=== PATIENT | female | born 1960 | race Caucasian/White ===

== ENCOUNTER 2023-04-09 06:11 | Observation (INO) | payer SELFPAY ==
[2023-04-09] MEDS ORDERED: ASPIRIN 81 MG CHEWABLE TABLET ONE (07:00)
[2023-04-09 07:18] LABS: Absolute Lymphocytes (CBC) 1.6 K/uL (0.7-4.9); Hematocrit 34.9 % (36.0-45.0); Lymphocytes % 18.7 % (15.3-44.8); MCV 97.9 fL (80-100); MPV 7.3 fL (7.6-11.3); Platelets 280 thou/uL (152-406); RBC Red Blood Cell Count 3.56 M/uL (3.86-4.86)
[2023-04-09 07:32] LABS: Protime INR 0.98
[2023-04-09 07:37] LABS: Albumin 3.3 g/dL (3.4-5.0); Bilirubin Direct 0.1 mg/dL (0-0.2); Bilirubin Indirect, Calculated 0.2 mg/dL (0.2-0.8); Bilirubin Total 0.3 mg/dL (0.2-1.0); Magnesium 2.1 mg/dL (1.6-2.4); Potassium 2.9 mEq/L (3.5-5.1); Protein, Total 7.6 g/dL (6.4-8.2); Troponin High Sensitivity 9.6 pg/mL (<58.9)
--- NOTE | 2023-04-09 08:00 | RAD REPORT ---
EXAM DESCRIPTION: CT - Chest For Pe Angio - 04/09/2023 7:48 am CLINICAL HISTORY: CHEST PAIN COMPARISON: No comparisons TECHNIQUE: Dynamically enhanced axial 3 mm thick images of the chest were obtained during administra tion of <100> mL Isovue 370 IV contrast. Coronal and oblique reconstruction images were generated and reviewed. Exam utilizes a protocol for optimal evaluation of pulmonary arterial tree. Maximum intensity projections 3D imaging was utilized All CT scans are performed using dose optimization technique as appropriate and may include automated exposure control or mA/KV adjustment according to patient size. FINDINGS: Chest Wall: No suspicious thyroid nodules or pathologic lymphadenopathy. Lungs: Mild bronchial wall thickening with some secretions in the lower lung airways. Pleura: No significant effusions or pneumothorax. Mediastinum/zehra: No pathologic lymphadenopathy. Circumferentially thickened distal esophagus which c ould reflect esophagitis. A small hiatal hernia is also noted. Pulmonary arteries/Aorta: No filling defect identified. No aortic aneurysm. Heart: No significant pericardial effusion. Normal heart size. Upper abdomen: No acute abnormality. Bones: No acute abnormality. IMPRESSION: Negative for pulmonary embolism. Mild bronchial wall thickening with some scattered airw ay secretions that could be due to bronchitis. Thickened distal esophagus with small hiatal hernia th at could reflect esophagitis. Endoscopy could better evaluate.
--- NOTE | 2023-04-09 08:19 | ER ---
Nurse's Notes [facility] Name: Devi Kwok Age: 62 yrs Sex: Female : 1960 Arrival Date: 04/09/2023 Time: 06:11 Bed 2 Private MD: Diagnosis: Chest pain, unspecified Presentation: 04/09 06:15 Chief complaint: Patient states: constant left side chest pain of 7,onset 1 week that pf1 sometimes radiates to center of chest. 06:15 Coronavirus screen: Vaccine status: Patient reports receiving the 1st dose of the Covid pf1 vaccine. [employer] Client denies travel out of the [place] in the last 14 days. At this time, the client does not indicate any symptoms associated with coronavirus-19. Ebola Screen: Patient negative for fever greater than or equal to 101.5 degrees Fahrenheit, and additional compatible Ebola Virus Disease symptoms. Initial Sepsis Screen: Does the patient meet any 2 criteria? No. Patient's initial sepsis screen is negative. Does the patient have a suspected source of infection? No. Patient's initial sepsis screen is negative. Risk Assessment: Do you want to hurt yourself or someone else? Patient reports no desire to harm self or others. 06:15 Method Of Arrival: Ambulatory pf1 06:15 Acuity: LEILANI 2 pf1 08:15 Onset of symptoms was April 09, 2023. ph Historical: - Allergies: 07:00 No Known Allergies; pf1 - PMHx: 07:00 Asthma; Hypertensive disorder; pf1 - PSHx: 07:00 None; pf1 - Immunization history:: Adult Immunizations up to date, Client reports receiving the 1st dose of the Covid vaccine, [employer] Last tetanus immunization: < 5 years ago Flu vaccine is not up to date. - Social history:: Smoking status: Patient reports the use of cigarette tobacco products, smokes one-half pack cigarettes per day, Patient uses alcohol, occasionally. Patient/guardian denies using street drugs. - Family history:: not pertinent. Screenin:54 [facility] ED Fall Risk Assessment (Adult) History of falling in the last 3 months, jj7 including since admission No falls in past 3 months (0 pts) Confusion or Disorientation No (0 pts) Intoxicated or Sedated No (0 pts) Impaired Gait No (0 pts) Mobility Assist Device Used No (0 pt) Altered Elimination No (0 pt) Score/Fall Risk Level 0 - 2 = Low Risk Oriented to surroundings, Maintained a safe environment, Educated pt \T\ family on fall prevention, incl call for assistance when getting out of bed. Abuse screen: Denies threats or abuse. Nutritional screening: No deficits noted. Tuberculosis screening: No symptoms or risk factors identified. Assessment: 06:54 General: Appears in no apparent distress. comfortable, Behavior is calm, cooperative, jj7 appropriate for age. Pain: Complains of pain in chest. Cardiovascular: Reports chest pain, Chest pain. 07:00 General: Appears in no apparent distress. comfortable, well groomed, well developed, kc6 Behavior is calm, cooperative, appropriate for age. Pain: Complains of pain in chest. Neuro: Level of Consciousness is awake, alert, obeys commands, Oriented to person, place, time, situation, Appropriate for age. Cardiovascular: Reports chest pain, Heart tones S1 S2 present Capillary refill < 3 seconds Rhythm is sinus rhythm. Respiratory: Airway is patent Trachea midline Respiratory effort is even, unlabored, Respiratory pattern is regular, symmetrical. GI: Reports nausea, vomiting, Patient currently denies abdominal pain, diarrhea. : No signs and/or symptoms were reported regarding the genitourinary system. EENT: No signs and/or symptoms were reported regarding the EENT system. Derm: No signs and/or symptoms reported regarding the dermatologic system. Skin is intact, is healthy with good turgor, Skin is pink, warm \T\ dry. Musculoskeletal: No signs and/or symptoms reported regarding the musculoskeletal system. Circulation, motion, and sensation intact. Capillary refill < 3 seconds, Range of motion: intact in all extremities. 08:00 Reassessment: Patient appears in no apparent distress at this time. No changes from kc6 previously documented assessment. Patient and/or family updated on plan of care and expected duration. Pain level reassessed. Patient is alert, oriented x 3, equal unlabored respirations, skin warm/dry/pink. 08:30 Reassessment: Patient appears in no apparent distress at this time. Patient and/or ph family updated on plan of care and expected duration. Pain level reassessed. Patient is alert, oriented x 3, equal unlabored respirations, skin warm/dry/pink. Pt c/o pain and requesting pain medication, ERP notified, verbal order received from Dr Reddy for morphine 4mg IVP. 09:00 Reassessment: Patient appears in no apparent distress at this time. No changes from kc6 previously documented assessment. Patient and/or family updated on plan of care and expected duration. Pain level reassessed. Patient is alert, oriented x 3, equal unlabored respirations, skin warm/dry/pink. 17:03 Reassessment: Attempted to call report, receiving nurse in a pt's room, states that she ph will call back in 5 minutes. Vital Signs: 06:15 BP 162 / 87; Pulse 74; Resp 18; Temp 98.1; Pulse Ox 100% on R/A; Weight 56.25 kg; pf1 Height 5 ft. 5 in. ; Pain 7/10; 08:14 Pulse 75; Resp 17; Pulse Ox 98% on R/A; ph 08:16 BP 102 / 61; ph 09:16 BP 134 / 78; Pulse 61; Resp 16 S; Pulse Ox 99% on R/A; kc6 06:15 Body Mass Index 20.63 (56.25 kg, 165.1 cm) pf1 06:15 Pain Scale: Adult pf1 Loki Coma Score: 06:55 Eye Response: spontaneous(4). Motor Response: obeys commands(6). Verbal Response: sp4 oriented(5). Total: 15. ED Course: 06:12 Patient arrived in ED. jj6 06:39 Nolberto Gaytan MD is Attending Physician. sp4 06:41 Inserted saline lock: 22 gauge in right forearm, using aseptic technique. Blood oe collected. 06:54 Patient has correct armband on for positive identification. Bed in low position. Call jj7 light in reach. Side rails up X 1. Client placed on continuous cardiac and pulse oximetry monitoring. NIBP monitoring applied. lower in supervisor on. Pulse ox on. 07:00 Triage completed. pf1 07:00 Patient maintains SpO2 saturation greater than 95% on room air. kc6 07:00 Report received from ANGELICA WONG. kc6 07:09 Attending Physician role handed off by Nolberto Gaytan MD sp3 07:09 Melissa Reddy MD is Attending Physician. sp3 07:49 CT Chest For PE Angio In Process Unspecified. EDMS 08:15 Arm band placed on Patient placed in an exam room, on a stretcher. ph 08:19 Lex Varghese MD is Hospitalizing Provider. sp3 09:15 Breana Birmingham, RN is Primary Nurse. kc6 09:40 No provider procedures requiring assistance completed. Patient admitted, IV remains in kc6 place. Administered Medications: 07:05 Drug: Aspirin PO Chewable Tablet 324 mg PO once; 81 mg tablets x 4 Route: PO; jj7 09:17 Follow up: Response: No adverse reaction kc6 10:02 Drug: morphine IVP or IV 4 mg IVP once over 4 mins Route: IVP; Infused Over: 4 mins; ph Site: right forearm; 10:02 Drug: Ondansetron IVP 4 mg IVP once; over 2 minutes Route: IVP; Site: right forearm; ph Medication: 06:54 VIS not applicable for this client. jj7 Outcome: 08:19 Decision to Hospitalize by Provider. sp3 09:40 Admitted to ER Hold. Please see [facility] for further documentation. kc6 09:40 Condition: good 09:40 Instructed on the need for admit, 17:35 Patient left the ED. ph Signatures: Dispatcher [employer] EDMI Divine Camarillo RN RN Mahendra Joy Setul, MD MD sp3 Sherri Byrd jj6 Breana Birmingham RN RN kc6 Suman Jewell RN RN jj7 Rose Mary Sarah RN RN pf1 Nolberto Gaytan MD MD sp4
--- NOTE | 2023-04-09 08:19 | EDPHYS ---
Physician Documentation [facility] Name: Devi Kwok Age: 62 yrs Sex: Female : 1960 Arrival Date: 04/09/2023 Time: 06:11 Bed 2 Private MD: ED Physician Melissa Reddy HPI: 04/09 06:39 This 62 yrs old Female presents to ER via Unassigned with complaints of Chest sp4 Pain, Nausea/Vomiting. 06:55 2-year-old female with history of extensive tobacco smoking presents with 1 week of sp4 left-sided chest pressure that is intermittent. Patient reported associated dizziness. Pain is nonexertional. . Historical: - Allergies: 07:00 No Known Allergies; pf1 - PMHx: 07:00 Asthma; Hypertensive disorder; pf1 - PSHx: 07:00 None; pf1 - Immunization history:: Adult Immunizations up to date, Client reports receiving the 1st dose of the Covid vaccine, [employer] Last tetanus immunization: < 5 years ago Flu vaccine is not up to date. - Social history:: Smoking status: Patient reports the use of cigarette tobacco products, smokes one-half pack cigarettes per day, Patient uses alcohol, occasionally. Patient/guardian denies using street drugs. - Family history:: not pertinent. ROS: 06:55 Constitutional: Negative for fever, chills, and weight loss, positive chest pressure sp4 and positive dizziness 06:55 All other systems are negative, Exam: 06:55 Constitutional: This is a well developed, well nourished patient who is awake, alert, sp4 and in no acute distress. Head/Face: Normocephalic, atraumatic. Eyes: Pupils equal round and reactive to light, extra-ocular motions intact. Lids and lashes normal. Conjunctiva and sclera are not injected. Cornea within normal limits. Periorbital areas with no swelling, redness, or edema. ENT: Nares patent. No nasal discharge, no septal abnormalities noted. Tympanic membranes are normal and external auditory canals are clear. Oropharynx with no redness, swelling, or masses, exudates, or evidence of obstruction, uvula midline. Mucous membranes moist. Neck: Trachea midline, no thyromegaly or masses palpated, and no cervical lymphadenopathy. Supple, full range of motion without nuchal rigidity, or vertebral point tenderness. Chest/axilla: Normal chest wall appearance and motion. Nontender with no deformity. No lesions are appreciated. Cardiovascular: Regular rate and rhythm with a normal S1 and S2. No gallops, murmurs, or rubs. Normal PMI, no JVD. No pulse deficits. Respiratory: Lungs have equal breath sounds bilaterally, clear to auscultation and percussion. No rales, rhonchi or wheezes noted. No increased work of breathing, no retractions or nasal flaring. Abdomen/GI: Soft, non-tender, with normal bowel sounds. No distension or tympany. No guarding or rebound. No evidence of tenderness throughout. Back: No spinal tenderness. No costovertebral tenderness. Skin: Warm, dry with normal turgor. Normal color with no rashes, no lesions, and no evidence of cellulitis. MS/ Extremity: Pulses equal, no cyanosis. Neurovascular intact. Full, normal range of motion. Neuro: Awake and alert, GCS 15, oriented to person, place, time, and situation. Cranial nerves II-XII grossly intact. Motor strength 5/5 in all extremities. Sensory grossly intact. Psych: Awake, alert, with orientation to person, place and time. Behavior, mood, and affect are within normal limits 06:55 ECG was reviewed by the Attending Physician. EKG at 6:28 AM reveals sinus rhythm at rate of 68 Vital Signs: 06:15 BP 162 / 87; Pulse 74; Resp 18; Temp 98.1; Pulse Ox 100% on R/A; Weight 56.25 kg; pf1 Height 5 ft. 5 in. ; Pain 7/10; 08:14 Pulse 75; Resp 17; Pulse Ox 98% on R/A; ph 08:16 BP 102 / 61; ph 09:16 BP 134 / 78; Pulse 61; Resp 16 S; Pulse Ox 99% on R/A; kc6 06:15 Body Mass Index 20.63 (56.25 kg, 165.1 cm) pf1 06:15 Pain Scale: Adult pf1 Loki Coma Score: 06:55 Eye Response: spontaneous(4). Motor Response: obeys commands(6). Verbal Response: sp4 oriented(5). Total: 15. MDM: 06:46 Patient medically screened. sp4 07:13 HEART Score: History: Slightly Suspicious (0), ECG: Normal (0), Age: > 45 and < 65 sp4 years (1), Risk Factors: 1 or 2 risk factors (1), Troponin: < or = 1 x Normal Limit (0), Total Score = 2. The patient was given aspirin in the Emergency Department. Data reviewed: vital signs, nurses notes, lab test result(s), EKG, radiologic studies, CT scan, plain films. Transition of care: After a detail discussion of the patient's case, care is transferred to Melissa Reddy MD. 07:27 ED course: Patient signed out to me by night physician. Patient is 62-year-old female sp3 with history of hypertension, asthma, long-term smoking history who presents with chief complaint chest pain. Workup is pending includes laboratory work and CT scan of the chest on the PE protocol. Patient's heart score is moderate in range and therefore will be placed in observation status with cardiology consultation if initial workup is negative and complete. Patient is okay with the plan.. 04/09 06:55 Order name: Basic Metabolic Panel; Complete Time: 08:00 sp4 04/09 06:55 Order name: CBC with Diff; Complete Time: 08:00 sp4 04/09 06:55 Order name: LFT's; Complete Time: 08:00 sp4 04/09 06:55 Order name: Magnesium; Complete Time: 08:00 sp4 04/09 06:55 Order name: NT PRO-BNP; Complete Time: 08:00 sp4 04/09 06:55 Order name: PT-INR; Complete Time: 08:00 sp4 04/09 06:55 Order name: Troponin HS; Complete Time: 08:00 sp4 04/09 09:31 Order name: T4 Free EDGA 04/09 09:31 Order name: Thyroid Stimulating Hormone EDGA 04/09 09:31 Order name: Basic Metabolic Panel EDGA 04/09 09:31 Order name: Basic Metabolic Panel EDGA 04/09 09:31 Order name: Basic Metabolic Panel EDMS 04/09 09:31 Order name: Basic Metabolic Panel EDMS 04/09 09:31 Order name: Basic Metabolic Panel EDMS 04/09 09:31 Order name: Basic Metabolic Panel EDMS 04/09 09:31 Order name: CBC with Automated Diff EDMS 04/09 09:31 Order name: CBC with Automated Diff EDMS 04/09 09:31 Order name: CBC with Automated Diff EDMS 04/09 09:31 Order name: CBC with Automated Diff EDMS 04/09 09:31 Order name: CBC with Automated Diff EDMS 04/09 09:31 Order name: CBC with Automated Diff EDMS 04/09 09:31 Order name: Lipid Profile EDMS 04/09 09:31 Order name: Lipid Profile EDMS 04/09 09:31 Order name: Magnesium EDMS 04/09 09:31 Order name: Magnesium EDMS 04/09 09:31 Order name: Magnesium EDMS 04/09 09:31 Order name: Magnesium EDMS 04/09 09:31 Order name: Magnesium EDMS 04/09 09:31 Order name: Magnesium EDMS 04/09 09:31 Order name: Phosphorus EDMS 04/09 09:31 Order name: Phosphorus EDMS 04/09 09:31 Order name: Phosphorus EDMS 04/09 09:31 Order name: Phosphorus EDMS 04/09 09:31 Order name: Phosphorus EDMS 04/09 09:31 Order name: Phosphorus EDMS 04/09 09:31 Order name: Troponin High Sensitivity EDMS 04/09 09:31 Order name: Troponin High Sensitivity EDMS 04/09 09:31 Order name: Troponin High Sensitivity EDMS 04/09 06:54 Order name: CT Chest For PE Angio; Complete Time: 08:09 sp4 04/09 06:55 Order name: EKG; Complete Time: 06:57 sp4 04/09 06:55 Order name: Cardiac monitoring; Complete Time: 06:58 sp4 04/09 06:55 Order name: EKG - Nurse/Tech; Complete Time: 06:55 sp4 04/09 06:55 Order name: IV Saline Lock; Complete Time: 06:58 sp4 04/09 06:55 Order name: Labs collected and sent; Complete Time: 07:09 sp4 04/09 06:55 Order name: O2 Per Protocol; Complete Time: 07:09 sp4 04/09 06:55 Order name: O2 Sat Monitoring; Complete Time: 07:09 sp4 EC:55 Rate is 68 beats/min. Rhythm is regular, Normal Sinus Rhythm. QRS [place] is Normal. [place] sp4 interval is normal. QRS interval is normal. QT interval is normal. No Q waves. T waves are Normal. No ST changes noted. Clinical impression: No evidence of ischemia. Interpreted by me. Reviewed by me. Administered Medications: 07:05 Drug: Aspirin PO Chewable Tablet 324 mg PO once; 81 mg tablets x 4 Route: PO; jj7 09:17 Follow up: Response: No adverse reaction kc6 10:02 Drug: morphine IVP or IV 4 mg IVP once over 4 mins Route: IVP; Infused Over: 4 mins; ph Site: right forearm; 10:02 Drug: Ondansetron IVP 4 mg IVP once; over 2 minutes Route: IVP; Site: right forearm; ph Disposition Summary: 04/09/23 08:19 Hospitalization Ordered Notes: Hospitalization Status: Observation sp3 Provider: Lex Varghese Condition: Stable sp3 Problem: new sp3 Symptoms: have worsened sp3 Bed/Room Type: Standard sp3 Location: Telemetry/MedSurg (observation)(04/09/23 16:37) bd Room Assignment: [facility](04/09/23 16:37) bd Diagnosis - Chest pain, unspecified sp3 Forms: - Medication Reconciliation Form sp3 - SBAR form sp3 - Leadership Thank You Letter sp3 Signatures: Dispatcher [employer] EDMS Ayana Arceo Patricia, RN RN Melissa Solano MD MD sp3 Suman Jewell RN RN jj7 Rose Mary Sarah RN RN pf1 Nolberto Gaytan MD MD sp4 Breana Birmingham RN kc6 Corrections: (The following items were deleted from the chart) 09:20 08:19 Telemetry/MedSurg (observation) sp3 bd 09:20 08:19 sp3 bd 16:37 09:20 [facility] ER HOLD bd bd 16:37 09:20 ERHOLD- bd bd
[2023-04-09] MEDS ORDERED: NITROGLYCERIN 0.4 MG/TAB SL PRN (09:23)
[2023-04-09] MEDS ORDERED: IPRATROPIUM BROM 0.5MG/2.5ML NEB PRN (09:23)
[2023-04-09] MEDS: ENOXAPARIN 40 MG/0.4 ML SQ SCH (09:26)
[2023-04-09] MEDS ORDERED: POTASSIUM 25 MEQ EFFERV TAB PO ONE ×2 (09:35→22:49)
[2023-04-09] MEDS ORDERED: ONDANSETRON 4 MG/2 ML VIAL IV PRN (09:38)
[2023-04-09] MEDS ORDERED: MORPHINE 4 MG/ML SYR ONE (09:51)
[2023-04-09 10:00] LABS: Thyroid Stimulating Hormone 0.652 uIU/mL (0.358-3.740)
[2023-04-09] MEDS ORDERED: KCL 20 MEQ/100 mL IVPB 20 MEQ/100 ML BAG IV SCH (10:00)
[2023-04-09] MEDS ORDERED: ENOXAPARIN 40 MG/0.4 ML SQ ONE (10:31)
[2023-04-09] MEDS ORDERED: POTASSIUM 25 MEQ EFFERV TAB ONE (10:31)
[2023-04-09] MEDS ORDERED: KCL 20 MEQ/100 mL IVPB 100 ML IV ONE (10:32)
[2023-04-09] MEDS ORDERED: NA CHLORIDE 0.9% 1,000 ML ONE (10:32)
[2023-04-09] MEDS ORDERED: MORPHINE 2 MG/ML SYR ONE ×2 (12:20→15:45)
[2023-04-09] MEDS: MORPHINE 2 MG/ML SYR IV PRN ×4 (12:24→23:21)
[2023-04-09 16:28] VITALS: O2SAT 97; BMI 20.6
--- NOTE | 2023-04-09 17:46 | P.HP ---
Certification for Inpatient Patient admitted to: Observation With expected LOS: >2 Midnights Patient will require the following post-hospital care: None Practitioner: I am a practitioner with admitting privileges, knowledge of patient current condition, hospital course, and medical plan of care. Services: Services provided to patient in accordance with Admission requirements found in Title 42 Section 412.3 of the Code of Federal Regulations Patient History Date of Service: 04/09/23 Reason for admission: Chest pain rule out ACS History of Present Illness: Devi Kwok is a 62-year-old female with past medical history asthma and hypertensive disorder who presents to the ED complaining of chest pain with nausea and vomiting for 1 week. She reports a burning and sharp pain from her left side of her chest to the middle including nausea. She also has a chronic cough that she relates to her asthma. She has not experienced chest pain like this before. Initial vital BP 162 / 87; Pulse 74; Resp 18; Temp 98.1; Pulse Ox 100% on R/A Laboratory evaluation significant for hypokalemia sodium 133 and hyponatremia potassium 2.9, Troponin 9.6, BNP 286. CT chest reports "negative for pulmonary embolus. Mild bronchial wall thickening with some scattered airway secretions that could be due to bronchitis. Thickened distal esophagus with small hiatal hernia that could reflect esophagitis. Endoscopy could better evaluate." Jimena Kwok will be admitted to hospitalist service for further evaluation and treatment of chest pain rule out ACS. Allergies No Known Allergies Allergy (Unverified 04/09/23 10:03) Home Medications: Aspirin [Aspirin EC] 81 mg PO DAILY 04/09/23 Cetirizine HCl 10 mg PO DAILY 04/09/23 Fluticasone Propion/Salmeterol [Wixela 250-50 Inhub] NEB BIDRESP 04/09/23 Lisinopril [Zestril] 20 mg PO DAILY 04/09/23 Montelukast Sodium 10 tab PO DAILY 04/09/23 - Past Medical/Surgical History Has patient received pneumonia vaccine in the past: Yes - Social History Smoking Status: Unknown if ever smoked Place of Residence: Home Review of Systems General: Weakness Respiratory: Cough Cardiovascular: Chest Pain Gastrointestinal: Nausea Physical Examination - Vital Signs Temperature: 98.6 F Blood Pressure: 100/60 Pulse: 65 Respirations: 18 Pulse Ox (%): 96 - Physical Exam General: Alert, In no apparent distress, Oriented x3 HEENT: Atraumatic, Normocephalic, PERRLA Neck: Supple, 2+ carotid pulse no bruit, JVD not distended Respiratory: Clear to auscultation bilaterally, Normal air movement Cardiovascular: No edema, Normal pulses, Regular rate/rhythm, Normal S1 S2 Capillary refill: <2 Seconds Gastrointestinal: Normal bowel sounds, Soft and benign Musculoskeletal: No clubbing, No swelling, No contractures Integumentary: No rashes, No breakdown, No significant lesion Neurological: Normal speech, Normal strength at 5/5 x4 extr, Normal tone - Studies Laboratory Data (last 24 hrs) 04/09/23 04/09/23 04/09/23 07:00 07:00 07:00 WBC 8.60 Hgb 12.3 Hct 34.9 L Plt Count 280 PT 10.8 INR 0.98 Sodium 133 L Potassium 2.9 L BUN 8 Creatinine 0.70 Glucose 100 Magnesium 2.1 Total Bilirubin 0.3 AST 30 ALT 49 Alkaline Phosphatase 61 Assessment and Plan - Plan Assessment and plan Chest pain rule out ACS Aspirin, morphine, nitroglycerin Trend troponin 9.3/12.6 EKG: No obvious ST segment changes, trend Ordered transthoracic echocardiogram Ordered d-dimer Consult Cardiology if troponins elevate S/P aspirin 324 mg PO x 1 in ED TSh/Free T4 A1C Acute Bronchitis DuoNebs Dextromethorphan Hyponatremia Hypokalemia Initial potassium 2.9, sodium 130 replace as needed Monitor in a.m. lab Esophagitis Small hiatal hernia Carafate Misha Follow-up outpatient, endoscopy needed Smoking cessation Devi reports half pack cigarettes per day DVT PPx Lovenox Full code LOS 2 to 3 days Discharge Plan: Home Plan to discharge in: 48 Hours - Advance Directives Does patient have a Living Will: Yes Does patient have a Durable POA for Healthcare: Yes Time Spent Managing Pts Care (In Minutes): 50
--- NOTE | 2023-04-09 17:48 | EKG ---
Test Date: 2023-04-09 Test Time: 06:28:16 [employer]atering Convention Services Manager: RV MEASUREMENT RESULTS: Intervals: Rate: 68 W[place]: 152 QRSD: 88 QT: 418 QTc: 444 [place]: P: 81 W[place]: 152 QRS: 85 T: 88 INTERPRETIVE STATEMENTS: Normal sinus rhythm Nonspecific ST and T wave abnormality Abnormal ECG No previous ECG available for comparison Electronically Signed On 04-09-23 17:47:44 ENGINEERING CLERK by Malik Bolden
[2023-04-09] MEDS ORDERED: BENZONATATE 100 MG CAP PO PRN (19:37)
[2023-04-09] MEDS: SUCRALFATE 1GM/10ML UCUP PO SCH (22:44)
[2023-04-10] MEDS: MORPHINE 2 MG/ML SYR IV PRN ×3 (03:40→15:58)
[2023-04-10 05:31] LABS: Absolute Lymphocytes (CBC) 1.7 K/uL (0.7-4.9); Hematocrit 29.6 % (36.0-45.0); Lymphocytes % 25.1 % (15.3-44.8); MCV 98.6 fL (80-100); MPV 7.4 fL (7.6-11.3); Platelets 242 thou/uL (152-406)
[2023-04-10 05:50] LABS: Phosphorus 2.5 mg/dL (2.5-4.9)
[2023-04-10] MEDS: CALCIUM CARBONATE CHEW 500MG TAB PO PRN ×2 (06:40→16:01)
[2023-04-10] MEDS: SUCRALFATE 1GM/10ML UCUP PO SCH ×4 (07:30→22:12)
[2023-04-10] MEDS: ASPIRIN EC 81 MG TAB PO SCH (08:15)
[2023-04-10] MEDS: ENOXAPARIN 40 MG/0.4 ML SQ SCH (08:15)
[2023-04-10] MEDS ORDERED: SODIUM CHLORIDE 0.9% 10ML INJ IV PRN (10:11)
[2023-04-10] MEDS: PANTOPRAZOLE 40 MG INJ IVP SCH ×2 (11:17→21:00)
--- NOTE | 2023-04-10 15:23 | P.PN ---
Date of Service: 04/10/23 Subjective Awake and standing at the sink this morning, ambulating independently. Complaining of burning chest pain today, no real relief since admission Will continue with Carafate, Protonix, and Tums with the esophagitis/hiatal hernia that is present Dr. Lund consulted ROS 10 point ROS as noted above, otherwise negative Physical Exam General: AAO x3, conversant, NAD HEENT: Atraumatic, Normocephalic, PERRLA Neck: Supple, 2+ carotid pulse no bruit, JVD not distended Respiratory: Clear to auscultation bilaterally, Normal air movement, symmetrical chest wall movement Cardiovascular: No edema, Normal pulses, Regular rate/rhythm, Normal S1 S2, no murmur nontender Capillary refill: <2 Seconds Gastrointestinal: Normal bowel sounds, Soft and benign, nondistended Musculoskeletal: No clubbing, No swelling, No contractures, 2 + peripheral pulses Integumentary: No rashes, No breakdown, No significant lesion Neurological: Normal speech, Normal strength at 5/5 x4 extr, Normal tone Vitals Reviewed Problem list Chest pain rule out ACS Acute Bronchitis Hyponatremia Hypokalemia Esophagitis Small hiatal hernia Assessment and Plan Chest pain rule out ACS Aspirin, morphine, nitroglycerin Trend troponin 9.3/12.6/12.3 EKG: No obvious ST segment changes, trend Ordered transthoracic echocardiogram Ordered d-dimer Consult Cardiology, Dr. Bolden S/P aspirin 324 mg PO x 1 in ED TSH/Free T4 0.652/0.75 A1C 5.3 triglycerides 53, cholesterol 132, LDL 45 9, HDL 73 Acute Bronchitis DuoNebs Dextromethorphan Hyponatremia Hypokalemia Initial potassium 2.9, sodium 130 potassium 4.0, sodium 135resolved replace as needed Monitor in a.m. lab Esophagitis Small hiatal hernia Carafate Tums Protonix IV BID Follow-up outpatient, endoscopy needed Smoking cessation Devi reports half pack cigarettes per day DVT PPx Lovenox Full code LOS 2 to 3 days Discharge Plan: Home
[2023-04-10] MEDS ORDERED: PANTOPRAZOLE 40 MG INJ IVP SCH (21:00)
[2023-04-11] MEDS: SUCRALFATE 1GM/10ML UCUP PO SCH ×2 (07:53→10:27)
[2023-04-11 07:59] LABS: Absolute Lymphocytes (CBC) 1.3 K/uL (0.7-4.9); Hematocrit 32.3 % (36.0-45.0); Lymphocytes % 22.1 % (15.3-44.8); MCV 98.5 fL (80-100); MPV 7.2 fL (7.6-11.3); Platelets 287 thou/uL (152-406); RBC Red Blood Cell Count 3.28 M/uL (3.86-4.86)
[2023-04-11 08:07] LABS: Potassium 3.7 mEq/L (3.5-5.1)
--- NOTE | 2023-04-11 08:19 | ECHO ---
HEIGHT: 5 ft 5 in WEIGHT: 124 lb 0 oz DATE OF STUDY: 04/10/[address]: Jael Murphy NP 2-DIMENSIONAL: YES M.MODE: YES DOPPLER: YES COLOR FLOW: YES TDS: PORTABLE: YES DEFINITY: BUBBLE STUDY: DIAGNOSIS: CHEST PAIN CARDIAC HISTORY: CATHERIZATION: NO SURGERY: NO PROSTHETIC VALVE: NO PACEMAKER: NO MEASUREMENTS (cm) DIASTOLIC (NORMALS) SYSTOLIC (NORMALS) IVSd 1.2 (0.6-1.2) LA Diam 2.5 (1.9-4.0) LVEF 59% LVIDd 4.0 (3.5-5.7) LVIDs 2.8 (2.0-3.5) %FS 31% LVPWd 1.3 (0.6-1.2) Ao Diam 2.5 (2.0-3.7) 2 DIMENSIONAL ASSESSMENT: RIGHT ATRIUM: NORMAL LEFT ATRIUM: NORMAL RIGHT VENTRICLE: NORMAL LEFT VENTRICLE: NORMAL TRICUSPID VALVE: NORMAL MITRAL VALVE: TRACE MITRAL REGURGITATION PULMONIC VALVE: NORMAL AORTIC VALVE: NORMAL PERICARDIAL EFFUSION: NONE AORTIC ROOT: NORMAL LEFT VENTRICULAR WALL MOTION: NORMAL DOPPLER/COLOR FLOW: TRACE MITRAL REGURGITATION COMMENTS: 1. NORMAL LEFT VENTRICULAR EJECTION FRACTION 55-60% 2. NORMAL WALL MOTION 3. NORMAL DIASTOLIC FUNCTION 4. TRACE MITRAL REGURGITATION TECHNOLOGIST: PRISCILA CARIAS
[2023-04-11] MEDS ORDERED: MONTELUKAST 10 MG TAB PO SCH (09:00)
[2023-04-11] MEDS ORDERED: CETIRIZINE HCL 5 MG TABLET PO SCH (09:00)
[2023-04-11] MEDS ORDERED: ASPIRIN EC 81 MG TAB PO SCH (09:00)
[2023-04-11] MEDS ORDERED: lisinopriL 20 MG TAB PO SCH (09:00)
[2023-04-11 09:44] VITALS: TEMP 97.9
[2023-04-11] MEDS: ENOXAPARIN 40 MG/0.4 ML SQ SCH (10:26)
[2023-04-11] MEDS: ASPIRIN EC 81 MG TAB PO SCH (10:26)
[2023-04-11] MEDS: PANTOPRAZOLE 40 MG INJ IVP SCH (10:27)
--- NOTE | 2023-04-11 11:36 | RAD REPORT ---
EXAM DESCRIPTION: CT - Chest For Pe Angio - 04/11/2023 11:10 am CLINICAL HISTORY: PE COMPARISON: Chest For Pe Angio dated 04/09/2023 TECHNIQUE: Thin axial CT images of the chest were obtained following administration of 100 mL Isovue 370 IV contrast. Multiplanar reconstructions, and maximum intensity projection reconstructions were generated and reviewed. Exam utilizes a protocol for optimal evaluation of pulmonary arterial tree. All CT scans are performed using dose optimization technique as appropriate and may include automated exposure control or mA/KV adjustment according to patient size. FINDINGS: Pulmonary arteries are normal. No emboli or other suspicious finding. No acute or signific ant aorta findings. No mass or infiltrate in the lung parenchyma. No pleural thickening or pleural effusion. No pneumotho rax. Moderate hiatal hernia. No abnormal mediastinal or hilar masses or lymphadenopathy seen. No chest wall mass or abnormal axill iary lymphadenopathy. Nodular contour of the liver suggesting cirrhosis. IMPRESSION: No evidence of acute central pulmonary emboli. No other acute findings in the chest.
--- NOTE | 2023-04-11 12:39 | CON ---
Date of Consultation: 04/10/2023 Reason For Consultation: Chest pain. History Of Present Illness: 62-year-old female, active smoker, no major medical history except hyper tension, presented to emergency room with chest pain, retrosternal on and off, lasts for about 30 min utes to an hour, pressure-like and she is an active smoker close to a pack per day, has been doing so for a long time. Cardiac enzymes have been negative, but her chest pain continues to be there. Past Medical History: As outlined above in the HPI. Medications: Refer to reconciliation sheet for detailed list. Allergies: LIST WAS REVIEWED. PLEASE REFER TO NURSE'S NOTE. Family History: No premature coronary artery disease or cancer. Social History: Active smoker. Does not drink on a regular basis. Review of Systems: All systems reviewed and they are negative except as mentioned in the HPI. Physical Examination: Vital Signs: Reviewed. Head and Neck: Pupils are equal, reactive to light. Intact eye movements. No JVD. No cervical lym phadenopathy. Neck: Supple. Thyroid is not enlarged. Lungs: Clear to auscultation with no accessory muscle use or muscle retraction. Heart: Regular rate and rhythm. No extra sounds. Abdomen: Soft, nontender. Bowel sounds positive. No organomegaly. No masses or hernia. No rigidi ty or rebound. Extremities: No clubbing or cyanosis. Intact pulses. Skin: No rash or nodule. Neurologic: Alert, awake, oriented x3. No acute focal deficits appreciated. Investigations: Cardiac enzymes are negative. Assessment And Recommendations: Chest pain. Cardiac enzymes are negative. Recommend exercise nucle ar stress test and an echo. Further recommendations to follow. /INEZ Voice ID: [id number] Report ID: [id number]
--- NOTE | 2023-04-11 12:54 | P.DS ---
Admission Date: 04/09/23 Discharge Date: 04/11/23 Disposition: ROUTINE DISCHARGE Discharge Condition: GOOD Reason for Admission: Chest pain rule out ACS Brief History of Present Illness: Diagnosis Chest pain rule out ACS Acute Bronchitis Hyponatremia Hypokalemia Esophagitis Small hiatal hernia Liver Cirrhosis HPI 05/10/24 Devi Kwok is a 62-year-old female with past medical history asthma and hypertensive disorder who presents to the ED complaining of chest pain with nausea and vomiting for 1 week. She reports a burning and sharp pain from her left side of her chest to the middle including nausea. She also has a chronic cough that she relates to her asthma. She has not experienced chest pain like this before. Initial vital BP 162 / 87; Pulse 74; Resp 18; Temp 98.1; Pulse Ox 100% on R/A Laboratory evaluation significant for hypokalemia sodium 133 and hyponatremia potassium 2.9, Troponin 9.6, BNP 286. CT chest reports "negative for pulmonary embolus. Mild bronchial wall thickening with some scattered airway secretions that could be due to bronchitis. Thickened distal esophagus with small hiatal hernia that could reflect esophagitis. Endoscopy could better evaluate." Jimena Kwok will be admitted to hospitalist service for further evaluation and treatment of chest pain rule out ACS. Hospital Course: Devi Kowk is a 62-year-old female with past medical history of asthma and hypertensive disorder who presents to the ED complaining of chest pain with nausea and vomiting for 1 week. She reports a burning and sharp pain from her left side of her chest to the middle including nausea. She also has a chronic cough that she relates to her asthma. She was admitted to [facility] on 04/09/2023 for chest pain rule out ACS. CT chest reported "negative for pulmonary embolus. Mild bronchial wall thickening with some scattered airway secretions that could be due to bronchitis. Thickened distal esophagus with small hiatal hernia that could reflect esophagitis. Endoscopy could better evaluate." Echocardiogram was unremarkable. Troponin trended flat. Symptom improvement with Carafate, Protonix, and Tums. Dr. Bolden was consulted recommending stress test 04/11/23, this test was canceled due to elevated blood pressure from anxiety. Previous blood pressures have been stable. D-dimer elevated likely due to esophagitis, CT reports no PE. Cirrhotic liver found on CT report. Please follow-up with model and mold maker plaster , Dr. Burns, concerning the hiatal hernia, heartburn, and cirrhotic liver. Please follow-up with Dr. Bolden for an outpatient stress test. On 04/11/24, Devi Kwok was seen on morning rounds and deemed medically stable for discharge. Devi was discharged with instructions to schedule follow-up appointments with Dr. Bolden, Dr. Burns, and PCP. Devi was provided prescriptions for Prednisone, Z-Wild, Tessalon Perle, Carafate, proton. The patient and family members were given the opportunity to ask questions and reported no further questions. Furthermore, all questions were answered to the best of my ability. A copy of this discharge summary will be sent to the above providers to facilitate continuity of care. Today, I personally spent 50 minutes with Devi Kwok, of which greater than 50% of the time was spent in patient education, counseling, and coordination of care as described above. Physical Exam General: AAO x3, conversant, NAD HEENT: Atraumatic, Normocephalic, PERRLA Neck: Supple, 2+ carotid pulse no bruit, JVD not distended Respiratory: Clear to auscultation bilaterally, Normal air movement, symmetrical chest wall movement Cardiovascular: No edema, Normal pulses, Regular rate/rhythm, Normal S1 S2, no murmur nontender Capillary refill: <2 Seconds Gastrointestinal: Normal bowel sounds, Soft and benign, nondistended Musculoskeletal: No clubbing, No swelling, No contractures, 2 + peripheral pulses Integumentary: No rashes, No breakdown, No significant lesion Neurological: Normal speech, Normal strength at 5/5 x4 extr, Normal tone Vital Signs/Physical Exam: Temp Pulse Resp BP Pulse Ox 97.9 F 62 16 159/77 H 98 04/11/23 12:00 04/11/23 12:00 04/11/23 12:00 04/11/23 12:00 04/11/23 12:00 Laboratory Data at Discharge: WBC 5.70 thou/uL (4.3-10.9) 04/11/23 07:42 Hgb 11.4 g/dL (12.0-15.0) L D 04/11/23 07:42 Hct 32.3 % (36.0-45.0) L 04/11/23 07:42 Plt Count 287 thou/uL (152-406) 04/11/23 07:42 PT 10.8 SECONDS (9.5-12.5) 04/09/23 07:00 INR 0.98 04/09/23 07:00 Sodium 132 mEq/L (136-145) L 04/11/23 07:42 Potassium 3.7 mEq/L (3.5-5.1) 04/11/23 07:42 BUN 6 mg/dL (7-18) L 04/11/23 07:42 Creatinine 0.61 mg/dL (0.55-1.02) 04/11/23 07:42 Glucose 97 mg/dL (74-106) 04/11/23 07:42 Phosphorus 3.0 mg/dL (2.5-4.9) 04/11/23 07:42 Magnesium 2.0 mg/dL (1.6-2.4) 04/11/23 07:42 Total Bilirubin 0.3 mg/dL (0.2-1.0) 04/09/23 07:00 AST 30 U/L (15-37) 04/09/23 07:00 ALT 49 U/L (13-56) 04/09/23 07:00 Alkaline Phosphatase 61 U/L (45-117) 04/09/23 07:00 Triglycerides 53 mg/dL (<150) 04/10/23 04:57 Cholesterol 132 mg/dL (<200) 04/10/23 04:57 HDL Cholesterol 72 mg/dL (40-60) H 04/10/23 04:57 Cholesterol/HDL Ratio 1.83 04/10/23 04:57 Home Medications: Aspirin [Aspirin EC] 81 mg PO DAILY 04/09/23 Cetirizine HCl 10 mg PO DAILY 04/09/23 Fluticasone Propion/Salmeterol [Wixela 250-50 Inhub] NEB BIDRESP 04/09/23 Lisinopril [Zestril] 20 mg PO DAILY 04/09/23 Montelukast Sodium 10 tab PO DAILY 04/09/23 Azithromycin Tab [Zithromax*] 250 mg PO ZPAK #1 wild 04/11/23 Benzonatate [Tessalon Perle*] 100 mg PO TID PRN 5 Days #15 cap 04/11/23 Pantoprazole Sodium [Protonix] 40 mg PO DAILY 30 Days #30 tab 04/11/23 Sucralfate [Carafate*] 10 ml PO ACHS PRN 14 Days #1 bottle 04/11/23 predniSONE [Deltasone] 20 mg PO DAILY 5 Days #5 tab 04/11/23 New Medications: Sucralfate [Carafate*] 10 ml PO ACHS PRN 14 Days #1 bottle PRN Reason: heart burn predniSONE [Deltasone] 20 mg PO DAILY 5 Days #5 tab Pantoprazole Sodium [Protonix] 40 mg PO DAILY 30 Days #30 tab Benzonatate [Tessalon Perle*] 100 mg PO TID PRN 5 Days #15 cap PRN Reason: Cough Azithromycin Tab [Zithromax*] 250 mg PO ZPAK #1 wild Physician Discharge Instructions: Devi Kwok is a 62-year-old female with past medical history asthma and hypertensive disorder who presents to the ED complaining of chest pain with nausea and vomiting for 1 week. She reports a burning and sharp pain from her left side of her chest to the middle including nausea. She also has a chronic cough that she relates to her asthma. She was admitted to [facility] on 04/09/2023 for chest pain rule out ACS. CT chest reported "negative for pulmonary embolus. Mild bronchial wall thickening with some scattered airway secretions that could be due to bronchitis. Thickened distal esophagus with small hiatal hernia that could reflect esophagitis. Endoscopy could better evaluate." Troponin trended flat. Symptom improvement with Carafate, Protonix, and Tums. Dr. Bolden has been consulted recommending stress test 04/11/23, this test was canceled due to elevated blood pressure. D-dimer elevated likely due to esophagitis, CT reports no PE. Cirrhotic liver found on CT report. Please follow-up with model and mold maker plaster , Dr. Burns concerning the hiatal hernia, heartburn, and cirrhotic liver. Please follow-up with Dr. Bolden for an outpatient stress test. 1. Please call and schedule a follow-up appointment with your PCP in 3-5 days - Please follow-up with your PCP for medication refills/adjustments - follow up on bronchitis and heartburn until the Gastroenterology appointment 2. Please call and schedule a follow-up appointment with Dr. Bolden in 3-5 days for outpatient stress test 3. Please call and schedule follow-up with gastroenterology for hiatal hernia, heartburn, cirrhotic liver 3. Continue with regular bland diet, use Tums [id number] as needed and according to package direction. 4. No activity restrictions, ambulate safely. New medication Prednisone 20 mg daily x 5 days Zpack take as directed Tessalon Perle 3 times daily as needed for 5 days Carafate 3 times daily as needed Protonix 40 mg daily Diet: Regular Activity: Ad michael Followup: Malik Bolden MD [ACTIVE - CAN ADMIT] - Eliu Burns MD [ASSOCIATE-ACTIVE - CAN ADMIT] - Time spent managing pt's care (in minutes): 50
[2023-04-11 12:56] VITALS: BP 159/77
--- NOTE | 2023-04-11 16:29 | EKG ---
Test Date: 2023-04-10 Test Time: 13:46:05 Cfa: MIQUEL MEASUREMENT RESULTS: Intervals: Rate: 62 WA: 164 QRSD: 84 QT: 428 QTc: 434 Eckerman: P: 80 WA: 164 QRS: 88 T: 92 INTERPRETIVE STATEMENTS: Normal sinus rhythm Normal ECG Compared to ECG 04/09/2023 06:28:16 ST (T wave) deviation no longer present Electronically Signed On 04-11-23 16:26:04 GRIPPER INSTALLER by Malik Bolden
== END 2023-04-11 15:32 | disposition home or self-care (01) ==
LOC: ER 06:11 → ERHOLD 09:23 → 2ND 17:26
PROVIDERS: ADMIT Internal Medicine; ATTEND Internal Medicine
DX: R07.9 Chest pain, unspecified (principal); J45.909 Unspecified asthma, uncomplicated; I10 Essential (primary) hypertension; R11.2 Nausea with vomiting, unspecified; J20.9 Acute bronchitis, unspecified; K74.60 Unspecified cirrhosis of liver; E87.1 Hypo-osmolality and hyponatremia; E87.6 Hypokalemia; K20.90 Esophagitis, unspecified without bleeding; K44.9 Diaphragmatic hernia without obstruction or gangrene; F17.210 Nicotine dependence, cigarettes, uncomplicated; Z71.6 Tobacco abuse counseling
CPT/HCPCS: 36415; 71275; 80048; 80061; 80076; 83036; 83735; 83880; 84100; 84132; 84439; 84443; 84484; 85025; 85379; 85610; 93005; 93306; 96374; 96375; 99285; C9113; G0378; J1650; J2270; J2405; J3480; J7030; Q9967

== ENCOUNTER 2023-12-02 09:06 | Emergency (ER) | payer SELFPAY ==
[2023-12-02] MEDS ORDERED: NA CHLORIDE 0.9% 1,000 ML ONE (09:28)
[2023-12-02 09:44] LABS: Absolute Lymphocytes (CBC) 0.7 K/uL (0.7-4.9); Absolute Monocytes 1.2 K/uL (0.1-1.3); Absolute Neutrophil 24.7 K/uL (1.8-8.0); Basophils % 0.2 % (0-1.3); Eosinophils % 0.1 % (0-4.4); Hematocrit 33.3 % (36.0-45.0); Hemoglobin 11.1 g/dL (12.0-15.0); Lymphocytes % 2.8 % (15.3-44.8); MCH 33.2 pg (27.0-35.0); MCHC 33.3 g/dL (32.0-36.0); MCV 99.9 fL (80-100); Monocytes % 4.6 % (3.3-12.3); Neutrophils % 92.3 % (41.7-73.7); Platelets 222 thou/uL (152-406); RBC Red Blood Cell Count 3.33 M/uL (3.86-4.86); Red Cell Distribution Width 13.1 % (12.1-15.2)
[2023-12-02 09:59] LABS: Albumin 2.2 g/dL (3.4-5.0); Albumin/Globulin Ratio 0.5 (1.1-1.8); Anion Gap 14.2 mEq/L (5.0-15.0); Bilirubin Total 0.3 mg/dL (0.2-1.0); Globulin 4.7 g/dL (2.3-3.5); Protein, Total 6.9 g/dL (6.4-8.2)
[2023-12-02 10:06] LABS: Potassium 2.2 mEq/L (3.5-5.1)
[2023-12-02] MEDS ORDERED: KCL 20 MEQ/100 mL IVPB 100 ML IV ONE (10:13)
[2023-12-02 10:29] LABS: Atypical Lymphocytes 1 %; Band Neutrophils 2 % (0-1); Blood Morphology Comment NOT SEEN (NOT SEEN); Differential Total Cells Count 100; Dohle Bodies PRESENT; Lymphocytes 3 % (15-42); Monocytes 3 % (0-10); Platelet Estimate ADEQ; Segmented Neutrophils 91 % (40-80); Toxic Granulation 2+
--- NOTE | 2023-12-02 10:57 | RAD REPORT ---
Procedure: Chest Single View History: Cough Comparison: March 2023 Haziness right lung. Left lung appears clear of acute infiltrate. Small hiatal hernia Heart is normal size IMPRESSION: Haziness right lung probably a combination of small to moderate pleural effusion and atelectasis/infi ltrate. This should be followed until it has cleared to help exclude a postobstructive process/underlying mass
--- NOTE | 2023-12-02 12:26 | RAD REPORT ---
EXAMINATION: CT CHEST WITHOUT CONTRAST CLINICAL INDICATION: Shortness of breath TECHNIQUE: Routine CT scan of the chest without intravenous contrast. One or more of the following dose reduction techniques were used: Automated exposure control, adjustment of the mA and/or kV according to patient size, and/or iterative reconstruction. U nless otherwise specified, incidental findings do not require dedicated imaging follow-up. COMPARISON: Chest x-ray December 02, 2023 FINDINGS: Small to moderate loculated right pleural effusion. 4 cm opacity lies within the lateral aspect of the right upper lobe abutting the pleural space.. It c ontains small cavity Mild to moderate groundglass opacities are present within the right upper lobe. Mild right lower lobe atelectasis Left lung is clear. COPD No mediastinal or hilar lymphadenopathy seen. Lydrd-ed-qyizkujc hiatal hernia Mild fullness adrenal glands unchanged from March 2023 may represent adenomas IMPRESSION: Jzbzy-ee-rrurfode loculated right pleural effusion 4 cm opacity lateral right upper lobe may represent neoplasm
--- NOTE | 2023-12-02 13:10 | EDPHYS ---
Physician Documentation [facility] Name: Devi Kwok Age: 62 yrs Sex: Female : 1960 Arrival Date: 12/02/2023 Time: 09:06 Bed 16 Private MD: ED Physician Kinza Barron HPI: 12/01 09:41 This 62 yrs old Female presents to ER via Ambulatory with complaints of body gb1 aches,fatigue, and low back pain. 09:41 Pt here with body aches and fatigue for a couple days. She was seen by her doctor and gb1 was started on a z-pack and medrol dosepack. Pt has been having the "shakes" since starting these medications. She denies dyuria or fever, and said she recently tested negative for COVID.. Historical: - Allergies: 09:10 No Known Allergies; ll1 - PMHx: 09:10 Asthma; Hypertensive disorder; ll1 - Immunization history:: Adult Immunizations up to date. - Infectious Disease History:: Denies. - Social history:: Smoking status: Patient reports the use of cigarette tobacco products, denies chronic smoking, but will smoke occasionally. Exam: 09:41 Constitutional: This is a well developed, well nourished patient who is awake, alert, gb1 and in no acute distress. Head/Face: Normocephalic, atraumatic. Eyes: Pupils equal round and reactive to light, extra-ocular motions intact. Lids and lashes normal. Conjunctiva and sclera are non-icteric and not injected. Cornea within normal limits. Periorbital areas with no swelling, redness, or edema. ENT: Nares patent. No nasal discharge, no septal abnormalities noted. Tympanic membranes are normal and external auditory canals are clear. Oropharynx with no redness, swelling, or masses, exudates, or evidence of obstruction, uvula midline. Mucous membranes moist. Neck: Trachea midline, no thyromegaly or masses palpated, and no cervical lymphadenopathy. Supple, full range of motion without nuchal rigidity, or vertebral point tenderness. No Meningismus. Chest/axilla: Normal chest wall appearance and motion. Nontender with no deformity. No lesions are appreciated. Cardiovascular: Regular rate and rhythm with a normal S1 and S2. No gallops, murmurs, or rubs. Normal PMI, no JVD. No pulse deficits. Respiratory: Lungs have equal breath sounds bilaterally, clear to auscultation and percussion. No rales, rhonchi or wheezes noted. No increased work of breathing, no retractions or nasal flaring. Abdomen/GI: Soft, non-tender, with normal bowel sounds. No distension or tympany. No guarding or rebound. No evidence of tenderness throughout. Back: No spinal tenderness. No costovertebral tenderness. Full range of motion. Skin: Warm, dry with normal turgor. Normal color with no rashes, no lesions, and no evidence of cellulitis. MS/ Extremity: Pulses equal, no cyanosis. Neurovascular intact. Full, normal range of motion. Neuro: Awake and alert, GCS 15, oriented to person, place, time, and situation. Cranial nerves II-XII grossly intact. Motor strength 5/5 in all extremities. Sensory grossly intact. Cerebellar exam normal. Normal gait. Vital Signs: 09:18 BP 119 / 69; Pulse 84; Resp 18; Temp 97.8; Pulse Ox 100% on R/A; Weight 54.88 kg; ll1 Height 5 ft. 5 in. ; Pain 5/10; 11:05 BP 135 / 73; Pulse 80; Resp 18; Pulse Ox 100% on R/A; mb9 13:07 BP 138 / 85; Pulse 69; Resp 18; Pulse Ox 100% on R/A; mb9 09:18 Body Mass Index 20.14 (54.88 kg, 165.1 cm) ll1 09:18 Pain Scale: Adult ll1 MDM: 09:11 Patient medically screened. gb1 09:41 Differential Diagnosis flu, URI, COVID, bronchitis, PNA. Data reviewed:. Data reviewed: gb1 nurses notes, lab test result(s), pt refused COVID test per bedside R, radiologic studies. 13:12 ED course: 62-year-old female that comes for signs and is consistent with gb1 community-acquired pneumonia however with her history of half a pack to 1 pack/day tobacco use and family history of cancer I was concerned for malignancy with decreased breath sounds on the right. 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 I discussed the findings with the radiologist by phone as well as the patient and her daughter at the bedside. Patient's white blood cell count is 26,000 however she is on a Medrol Dosepak at this time placed by her primary care physician. I have referred the patient for bronchoscopy for biopsy and definitive diagnosis with Dr. Kirkpatrick the detacher. Patient is questions and concerns were answered prior to discharge home and I given her explicit return precautions to which she is compliant with as well.. 13:33 ED course: Considered PE as well, with pts history of presumed lung CA with incidental gb1 mass found today. Pt is not short of breath and denies any pleuritic back pain. Gave return precautions to pt and her daughter. Pt refused CTA today, on discussion at discharge with daughter.. 12/01 09:30 Order name: CBC with Diff; Complete Time: 10:37 gb1 12/01 09:30 Order name: CMP; Complete Time: 10:07 gb1 12/01 09:47 Order name: Manual Differential; Complete Time: 10:37 EDMS 12/01 09:30 Order name: Chest Single View XRAY; Complete Time: 11:14 gb1 12/01 11:23 Order name: CT Chest Wo Con; Complete Time: 12:40 gb1 12/01 09:30 Order name: IV Saline Lock; Complete Time: 09:38 gb1 12/01 09:30 Order name: Labs collected and sent; Complete Time: 09:38 gb1 Administered Medications: 09:38 Drug: Sodium Chloride 0.9% IVPB 1000 ml IVPB once Route: IVPB; Site: left antecubital; mb9 10:30 Follow up: Response: No adverse reaction; IV Status: Completed infusion mb9 10:29 Drug: Potassium Chloride IV 30 mEq IV at bolus once; administer over 1-2 hours Route: mb9 IV; Rate: bolus; Site: left antecubital; Disposition Summary: 12/02/23 13:10 Discharge Ordered Notes: Location: Home gb1 Problem: new gb1 Condition: Stable gb1 Diagnosis - Other nonspecific abnormal finding of lung field gb1 - Pleural effusion, not elsewhere classified gb1 Followup: gb1 - With: Issa Kirkpatrick MD - When: 1 week - Reason: Further diagnostic work-up Discharge Instructions: - Discharge Summary Sheet gb1 - Pleural Effusion gb1 - Incidental Abnormal Radiological Finding gb1 Forms: - Work release form ll1 - Medication Reconciliation Form gb1 - Antibiotic Education gb1 - Prescription Opioid Use gb1 - Patient Portal Instructions gb1 - Leadership Thank You Letter gb1 Signatures: Dispatcher [employer] Bree Rodriguez RN RN ll1 Jillian Ko RN RN mb9 Kinza Barron MD MD gb1
--- NOTE | 2023-12-02 13:10 | ER ---
Nurse's Notes [facility] Name: Devi Kwok Age: 62 yrs Sex: Female : 1960 Arrival Date: 12/02/2023 Time: 09:06 Bed 16 Private MD: Diagnosis: Other nonspecific abnormal finding of lung field;Pleural effusion, not elsewhere classified Presentation: 12/01 09:18 Chief complaint: Patient states: Cough, body aches, fatigue started last week. Saw her [facility] and started on azithromycin and prednisone, but just not getting better yet. No fever. Coronavirus screen: Client denies travel out of the [place] in the last 14 days. congestion, cough unrelated to allergies, fatigue, muscle pain, Client presents with at least one sign or symptom that may indicate coronavirus-19. Standard/surgical mask placed on the client. Ebola Screen: Patient denies travel to an Ebola-affected area in the 21 days before illness onset. Initial Sepsis Screen: Does the patient meet any 2 criteria? No. Patient's initial sepsis screen is negative. Does the patient have a suspected source of infection? No. Patient's initial sepsis screen is negative. Risk Assessment: Do you want to hurt yourself or someone else? Patient reports no desire to harm self or others. Onset of symptoms was November 27, 2023. 09:18 Method Of Arrival: Ambulatory [facility] 09:18 Acuity: LEILANI 3 1 Triage Assessment: 09:24 General: Appears uncomfortable, Behavior is calm, cooperative, appropriate for age, ll1 Reports feeling ill for fatigue for. Neuro: Reports weakness. Respiratory: Reports cough that is. Musculoskeletal: Reports pain in body aches. Historical: - Allergies: 09:10 No Known Allergies; ll1 - PMHx: 09:10 Asthma; Hypertensive disorder; ll1 - Immunization history:: Adult Immunizations up to date. - Infectious Disease History:: Denies. - Social history:: Smoking status: Patient reports the use of cigarette tobacco products, denies chronic smoking, but will smoke occasionally. Screenin:11 [facility] ED Fall Risk Assessment (Adult) History of falling in the last 3 months, mb9 including since admission No falls in past 3 months (0 pts) Confusion or Disorientation No (0 pts) Intoxicated or Sedated No (0 pts) Impaired Gait No (0 pts) Mobility Assist Device Used No (0 pt) Altered Elimination No (0 pt) Score/Fall Risk Level 0 - 2 = Low Risk Oriented to surroundings, Maintained a safe environment, Educated pt \T\ family on fall prevention, incl call for assistance when getting out of bed. Abuse screen: Denies threats or abuse. Nutritional screening: No deficits noted. Tuberculosis screening: No symptoms or risk factors identified. Assessment: 09:22 General: Appears in no apparent distress. Behavior is cooperative. Pain: Complains of mb9 pain in entire body Quality of pain is described as aching, Pain began 2-3 days ago. Neuro: Griffith Agitation-Sedation Scale (RASS): 0 - Alert and Calm Level of Consciousness is awake, alert, obeys commands, Oriented to person, place, time, situation, Appropriate for age. Cardiovascular: Patient's skin is warm and dry. Respiratory: Airway is patent Respiratory effort is even, unlabored, Respiratory pattern is regular, symmetrical. GI: No signs and/or symptoms were reported involving the gastrointestinal system. : No signs and/or symptoms were reported regarding the genitourinary system. EENT: No signs and/or symptoms were reported regarding the EENT system. Derm: Skin is pink, warm \T\ dry. Musculoskeletal: Range of motion: intact in all extremities. 09:39 Reassessment: pt refusing COVID swab, ERP notified. mb9 11:51 Reassessment: No changes from previously documented assessment. Patient and/or family mb9 updated on plan of care and expected duration. Pain level reassessed. Patient is alert, oriented x 3, equal unlabored respirations, skin warm/dry/pink. 12:35 Reassessment: ERP at bedside speaking to pt. mb9 13:35 Reassessment: No changes from previously documented assessment. Patient and/or family mb9 updated on plan of care and expected duration. Pain level reassessed. Patient is alert, oriented x 3, equal unlabored respirations, skin warm/dry/pink. Vital Signs: 09:18 BP 119 / 69; Pulse 84; Resp 18; Temp 97.8; Pulse Ox 100% on R/A; Weight 54.88 kg; ll1 Height 5 ft. 5 in. ; Pain 5/10; 11:05 BP 135 / 73; Pulse 80; Resp 18; Pulse Ox 100% on R/A; mb9 13:07 BP 138 / 85; Pulse 69; Resp 18; Pulse Ox 100% on R/A; mb9 09:18 Body Mass Index 20.14 (54.88 kg, 165.1 cm) ll1 09:18 Pain Scale: Adult ll1 ED Course: 09:09 Patient arrived in ED. ra3 09:10 Kinza Barron MD is Attending Physician. gb1 09:10 Jillian Ko, ANGELICA is Primary Nurse. mb9 09:10 Arm band placed on Patient placed in an exam room, on a stretcher. ll1 09:11 Bed in low position. Call light in reach. Side rails up X 1. Provided Education on: mb9 press call light if needing anything. Client placed on continuous cardiac and pulse oximetry monitoring. NIBP monitoring applied. Door closed. Noise minimized. Warm blanket given. Pillow given. 09:23 No provider procedures requiring assistance completed. mb9 09:24 Triage completed. ll1 09:38 CBC with Diff Sent. mb9 09:38 CMP Sent. mb9 09:39 Initial lab(s) drawn, by me, sent to lab. Inserted saline lock: 20 gauge in left mb9 antecubital area, using aseptic technique. Blood collected. Flushed with 10 mL NS. 10:00 jewel grinder on. mb9 10:28 Chest Single View XRAY In Process Unspecified. EDMS 11:[address] via wheelchair. mb9 11:43 CT Chest Wo Con In Process Unspecified. EDMS 13:09 Issa Kirkpatrick MD is Referral Physician. gb1 13:36 IV discontinued, intact, bleeding controlled, No redness/swelling at site. Pressure mb9 dressing applied. Administered Medications: 09:38 Drug: Sodium Chloride 0.9% IVPB 1000 ml IVPB once Route: IVPB; Site: left antecubital; mb9 10:30 Follow up: Response: No adverse reaction; IV Status: Completed infusion mb9 10:29 Drug: Potassium Chloride IV 30 mEq IV at bolus once; administer over 1-2 hours Route: mb9 IV; Rate: bolus; Site: left antecubital; Medication: 09:11 VIS not applicable for this client. mb9 Outcome: 13:10 Discharge ordered by . gb1 13:36 Discharged to home via wheelchair, with family, mb9 13:36 Condition: stable 13:36 Discharge instructions given to patient, family, Instructed on discharge instructions, follow up and referral plans. Demonstrated understanding of instructions, follow-up care, 13:36 Patient left the ED. mb9 Signatures: Dispatcher [employer] Bree Rodriguez RN RN ll1 Jillian Ko RN RN mb9 Kinza Barron MD MD gb1 Bailey Vasquez 3
[2023-12-02 13:52] VITALS: TEMP 97.8; O2SAT 100
[2023-12-02 14:05] VITALS: BP 138/85
== END 2023-12-02 13:36 | disposition home or self-care (01) ==
LOC: ER 09:06
DX: J90 Pleural effusion, not elsewhere classified (principal); R91.8 Other nonspecific abnormal finding of lung field
CPT/HCPCS: 36415; 71045; 71250; 80053; 85025; 96365; 96375; 99285; J3480; J7030